=== PATIENT | female | born 1965 | race Hispanic/Latino ===

== ENCOUNTER 2017-05-04 15:19 | Emergency (ER) | payer OTHER ==
[~2017-05-04] VITALS: Ht 157.5 cm; Wt 91.2 kg
[2017-05-04] MEDS ORDERED: PHENTERMINE H37.5 M1 PO (15:50)
[2017-05-04 17:12] LABS: BILIRUBIN,URINE NEGATIVE (NEGATIVE); KETONES,URINE NEGATIVE (NEGATIVE); LEUKOCYTE ESTERASE ,URINE 2+ (NEGATIVE); PROTEIN,URINE DIPSTICK 3+ (NEGATIVE); URINE UROBILINOGEN 1 mg/dL (0.2 - 1)
[2017-05-04 17:14] LABS: NITRITE,URINE POSITIVE (NEGATIVE)
[2017-05-04 17:15] LABS: CLARITY,URINE HAZY (CLEAR); COLOR,URINE RED (YELLOW)
[2017-05-04 17:17] LABS: BACTERIA,URINE MANY /HPF; EPITHELIAL CELLS,URINE FEW /LPF; MUCUS,URINE MODERATE (RARE); RBC,URINE >50 /HPF (0-5); WBC,URINE (MAN) >50 /HPF (0-5)
== END 2017-05-04 18:11 | disposition home or self-care (01) ==
LOC: ER 15:19
DX: R30.0 Dysuria (principal); N30.91 Cystitis, unspecified with hematuria
CPT/HCPCS: 81001; 87086; 87186; 99283